=== PATIENT | male | born 1950 ===

== ENCOUNTER 2016-06-12 06:52 | Inpatient (IN) | payer OTHER, BC ==
--- NOTE | 2016-06-11 13:56 | GHP ---
[f rep st] PREOP HISTORY AND PHYSICAL DATE OF ADMISSION: He will be an a.m. admission for surgery on Monday, June 122016. PROBLEM: Left knee degenerative arthritis. HISTORY OF PRESENT ILLNESS: The patient is a 65-year-old man admitted for a left total knee arthroplasty. He lives in [place], [place]. He states that he has been bowlegged his whole life. 3 years ago, he underwent right knee arthroscopic surgery, but it did not help. 1-1/2 years ago, he underwent left knee arthroscopic surgery and that did not help either. He has tried physical therapy. He has day pain and night pain. He has to use a pillow between his knees at night. Walking is painful. The more active he is, the more pain he has. PAST MEDICAL HISTORY: He is treated for hypertension. He underwent a heart catheterization in December of 2015 and was told that his coronary arteries were clear. No history of DVT or hepatitis. He has sleep apnea and has a CPAP machine. CURRENT MEDICATIONS: Lisinopril 20 mg per day. Metoprolol 50 mg per day. He takes a baby aspirin every day, but he stopped it in preparation for his surgery. DRUG ALLERGIES: Penicillin caused swelling when he was a child. METAL ALLERGY: None. LATEX ALLERGY: None. SOCIAL HISTORY: The patient is . He does not smoke cigarettes and rarely drinks alcohol. He works part-time doing small tool repair. FAMILY HISTORY: Positive for arthritis. PHYSICAL EXAMINATION: GENERAL: Height 6 feet 3 inches. Weight 240 pounds. EYES: Conjunctivae and sclerae are clear. Pupils are round and reactive. MOUTH: Good oral hygiene. No loose teeth. CHEST: Clear. HEART: Regular rhythm. No murmurs. EXTREMITIES: Pertinent findings limited to his left knee. He has significant varus alignment. No effusion. No patellofemoral crepitation. He has a 3-degree flexion contracture and further flexion to 120 degrees. His ligaments are stable except for mild pseudolaxity of his medial collateral ligament. IMAGING: His films show degenerative arthritis in the medial compartment of the left knee with varus alignment. IMPRESSION ON ADMISSION: 1. Left knee medial compartment degenerative arthritis with varus deformity. 2. Right knee early degenerative arthritis, which is mild, asymptomatic. 3. Treatment for hypertension. 4. Sleep apnea. PLAN: He will undergo a left total knee arthroplasty. The surgery has been described to him including the risks, complications, expectations, and recovery time. I have stressed the importance of postoperative physical therapy. I have advised him that a small percentage of people do not get a satisfactory result. He is aware there is a small risk of future revision surgery. All his questions have been answered, and he consents to surgery. Copy requested to: SHIRLEY Elder /[id number]/MODL MTDD
[2016-06-12] MEDS ORDERED: LR 1,000 ML IV ONE (07:58)
[2016-06-12] MEDS ORDERED: POVIDONE-IODINE 20 ML in SODIUM CL IRRIG SOLUTION 500 ML IRR ONE (08:00)
[2016-06-12] MEDS ORDERED: DEXAMETHASONE 4 MG/ML VIAL IVP ONE (08:00)
[2016-06-12] MEDS ORDERED: CHLORHEXIDINE GLUC HIBICLENS 118 ML BTL TP ONE (08:00)
[2016-06-12] MEDS ORDERED: ROPI/epiNEPH/KETOROLAC JOINT COCKTAIL IU ONE (08:00)
[2016-06-12] MEDS ORDERED: CEFAZOLIN 2 GM/DEXTR 100 ML IV ONE (08:00)
[2016-06-12] MEDS ORDERED: FAMOTIDINE 20 MG TAB PO ONE (08:00)
[2016-06-12] MEDS ORDERED: ACETAMINOPHEN 325 MG TAB PO ONE (08:00)
[2016-06-12] MEDS ORDERED: TRANEXAMIC ACID 1,100 MG in NS 100 ML IV ONE (08:00)
[2016-06-12] MEDS ORDERED: PROPOFOL/EMULSION 500 MG/50 ML BOTTLE IV ONE ×2 (08:32→10:15)
[2016-06-12] MEDS ORDERED: fentaNYL 100 MCG/2 ML INJ ONE (08:32)
[2016-06-12] MEDS ORDERED: VANCOMYCIN 1 GM VIAL IV ONE (08:36)
[2016-06-12] MEDS ORDERED: ceFAZolin 1 GM/5 ML SYR ONE (08:37)
[2016-06-12] MEDS ORDERED: ONDANSETRON 4 MG/2 ML VIAL ONE (11:21)
--- NOTE | 2016-06-12 11:21 | POSTOPPROG ---
Post Op Note Date of Operation: 06/12/16 Surgeon: Alexander Frederick [employer] Demonstrator: Alek Anesthesiologist: Sandy Anesthesia: IV Sedation, Spinal Post-op Diagnosis: left knee arthritis Procedure: L TKA Inf/Abcess present in the surg proc area at time of surgery?: No EBL: 50-100
[2016-06-12] MEDS ORDERED: POLYETHYLENE GLYCOL 3350 17 GM PKT PO PRN (11:36)
[2016-06-12] MEDS ORDERED: ONDANSETRON DISINTEGRATING 4 MG TAB PO PRN (11:36)
[2016-06-12] MEDS ORDERED: DIPHENOXYLATE/ATROPINE LOMOTIL 1 TAB PO PRN (11:36)
[2016-06-12] MEDS ORDERED: TEMAZEPAM 15 MG CAP PO PRN (11:36)
[2016-06-12] MEDS ORDERED: NS 500 ML IV PRN (11:36)
[2016-06-12] MEDS ORDERED: METOCLOPRAMIDE 10 MG/2 ML VIAL IVP PRN (11:36)
[2016-06-12] MEDS ORDERED: BISACODYL 10 MG SUPP PR PRN (11:36)
[2016-06-12] MEDS ORDERED: CYCLOBENZAPRINE 10 MG TAB PO PRN (11:36)
[2016-06-12] MEDS ORDERED: PROMETHAZINE HCL 25 MG SUPPR PR PRN (11:36)
[2016-06-12] MEDS ORDERED: PHARMACY PAIN CONSULT 1 EA MISC PRN (11:36)
[2016-06-12] MEDS ORDERED: KETOROLAC 30 MG/1 ML SDV IVP PRN (11:36)
[2016-06-12] MEDS ORDERED: diphenhydrAMINE 25 MG CAP PO PRN (11:36)
[2016-06-12] MEDS ORDERED: traMADol 50 MG TAB PO PRN (11:36)
[2016-06-12] MEDS ORDERED: MAGNESIUM HYDROXIDE 30 ML UDCUP PO PRN (11:36)
[2016-06-12] MEDS ORDERED: ONDANSETRON 4 MG/2 ML VIAL IVP PRN (11:36)
[2016-06-12] MEDS ORDERED: LACTULOSE 20 GM/30 ML UDCUP PO PRN (11:36)
[2016-06-12] MEDS ORDERED: LR 1,000 ML IV SCH (12:00)
--- NOTE | 2016-06-12 12:08 | GOP ---
[f rep st] OPERATIVE REPORT DATE OF OPERATION: 06/12/2016 SURGEON: Alexander Frederick MD HAT LINING PASTER: 1. Ayaan Muñiz P.A.-C. 2. Jay Jay Coombs C.F.A. ANESTHESIA: Combination of Marcaine, spinal and IV sedation and adductor canal block. ANESTHESIOLOGIST: Dr. Lucas Delgado. PREOPERATIVE DIAGNOSIS: Left knee degenerative arthritis with varus deformity. POSTOPERATIVE DIAGNOSIS: Left knee degenerative arthritis with varus deformity. PROCEDURE PERFORMED: Left total knee arthroplasty, Lujan and Nephew Journey 2, cemented, posterior stabilized. FINDINGS: DESCRIPTION OF PROCEDURE: The patient was given 2 g of IV Ancef preoperatively within 60 minutes of surgery. He also received IV tranexamic acid at a dose of 10 mg/kg. He was placed on the operatin g room table and given spinal anesthesia with Marcaine by Dr. Delgado. He was then placed supine and given IV sedation. A Aparicio catheter was not used. He wore a JES stocking and SCD on the nonoperati ve leg. His left lower extremity was prepped with ChloraPrep from the upper thigh tourniquet to the tips of the toes. It was draped free using sterile sheets, stockinette, and Ioban plastic adhesive drape. The lower leg was wrapped with compressive Coban. The leg was exsanguinated with elevation and a 6-inch compressive wrap, and the pneumatic tourniquet was inflated to 250 mmHg. The [employer] time-out was performed to verify the correct patient identity and the correct surg ical side. The Isabella time-out was also performed. The [employer] leg holding device was sterilely at tached to the operating room table and used throughout the procedure to help position the knee. A straight midline incision was made centered on the patella. Subcutaneous tissues were sharply div ided and hemostasis was obtained using electrocautery. A medial subcutaneous flap was developed and capsule and synovium were opened in a medial parapatellar fashion. Extensive degenerative changes were present in the medial compartment. His medial capsule and periosteum were elevated off the rim and medial tibial plateau all the way around to the posteromedial corner. Because of a significant preoperative varus alignment, I made a significant release of the medial collateral ligament off th e medial tibial plateau flare. In order to improve exposure, the patella was prepared first. The original thickness of the patella was measured. Peripheral osteophytes were removed. I cut a flat surface on the back of the arti tracey. It was sized for a 38 mm resurfacing component. I removed enough bone from the patella such etta t the remaining bone plus the thickness of the patellar component recreated the original thickness o f the patella. The composite thickness was 25 mm. The intramedullary alignment guide system was us ed to set up the distal femoral cut. The distal femur was cut in 5 degrees of valgus. I made a +2 mm cut on the distal femur. The sizing jig was used to determine proper femoral sizing. He was a t rue size 7 without a shift. The 5 in 1 cutting block was applied, and the anterior and posterior co ndylar cuts and chamfer cuts were made. The final jig was used to remove the central portion of the distal femur to accommodate the posterior stabilized femoral component. I was careful to determine proper rotation by referencing off Whitesides line. Each cut was checked for accuracy before and a fter it was made. The femur was a size 7 posterior stabilized component. Next, the tibia was prepared. The proximal tibial cut was made using the extramedullary alignment g uide system. The cut was made in a few degrees of posterior slope. I was careful to achieve proper varus and valgus alignment and proper rotation. The posterior compartment was cleared of meniscal remnants. Osteophytes were removed from the back of the femoral condyles. I checked the flexion ex tension gaps. His medial collateral ligament. It was tight particularly in flexion. I used an 11 blade and perforated the medial collateral ligament to lengthen it a small amount. At that point, t gunjan flexion and extension gaps were equal and balanced and were rectangular. The tibia was sized for a size 6 component. With the trial components in place, I selected a 10 mm polyethylene posterior stabilized tibial insert. The knee came to full extension and flexed to 130 degrees. There was no overstuffing in flexion. His collateral ligaments were stable and balanced in 90 degrees of flexion to full extension. The trial patellar button was applied and patellar tracking was checked. Track ing was excellent, without any digital pressure. 40 mL of a joint anesthetic cocktail was injected into the posterior capsule, the periarticular stru ctures, the quadriceps muscle and tendon areas, and the subcutaneous tissues along the skin edges. A second dose of IV tranexamic acid was given at a dose of 10 mg/kg. The surfaces were prepared for cementing. They were carefully cleaned with the pulsating lavage irr igation and thoroughly dried. The CarboJet device was used to blow dry the cancellous surfaces. A double batch of methylmethacrylate cement with tobramycin was mixed with 2 g of powdered vancomycin added. While it was still in a semi liquid state, all [address] components were cemented in place. Excess cement was removed before it hardened. The 10 mm trial tibial insert was retried and was the proper thickness. The actual component was inserted and locked into place. The knee was thoroughly irrigated 1 final time with a dilute Betadine solution. The tourniquet was deflated and the total tourniquet time was 65 minutes. The vastus medialis portion of the extensor mechanism was repaired with several interrupted figure-o f-eight #2 FiberWire sutures. The capsule and synovium were closed first with multiple interrupted [id number] 0 PDS sutures, followed by a running #2 barbed Ethicon Stratafix PDO suture. The palomares bcutaneous tissues were closed with a running 0 barbed Ethicon Stratafix Monoderm suture. The skin was closed with a running 3-0 barbed Ethicon Stratafix Monoderm subcuticular suture. The skin was s ealed with half-inch Steri-Strips. The wound was covered with Xeroform gauze and flat 4x4s, and the knee was wrapped with a Kerlix and 6-inch compressive wrap. A long-leg JES stocking and SCD were a pplied followed by the cooling device. The patient wore a stocking and SCD on the opposite leg duri ng the procedure. I used a size 7 cemented Lujan and Nephew Oxinium posterior stabilized femoral component, size 6 smita ented tibial base plate, a 10 mm posterior stabilized tibial insert, and a 38 mm cemented round all- polyethylene resurfacing patellar component. The estimated blood loss following placement of the tourniquet was about 100 cc. The sponge and nee dle count were correct on 2 occasions. The patient was awakened from anesthesia, transferred to his [facility] and taken to the PACU in satisfactory condition. There were no recognized intraope rative complications. In the PACU, for additional postoperative pain control, Dr. Delgado administered an adductor canal blo ck to the left leg. Haris Muñiz and Jay Jay Coombs acted as surgical assistants. Their assistance was a medical adarsh bautista. Copy requested to: Mahin Devi MD [place] /[id number]/MODL
[2016-06-12 12:58] VITALS: RESP 16
[2016-06-12] MEDS: ACETAMINOPHEN 325 MG TAB PO SCH ×3 (13:16→23:01)
[2016-06-12] MEDS: TRANEXAMIC ACID 650 MG TAB PO SCH ×3 (15:08→21:15)
[2016-06-12] MEDS: ceFAZolin 2 GM/DEXTROSE 100 ML IV SCH (17:51)
[2016-06-12] MEDS: SENNOSIDES/DOCUSATE SODIUM TAB PO SCH (21:14)
[2016-06-12] MEDS: FAMOTIDINE 20 MG TAB PO SCH (21:15)
[2016-06-12] MEDS: ASPIRIN 325 MG TAB PO SCH (21:15)
[2016-06-12] MEDS: METOPROLOL SUCCINATE XR 50 MG TAB PO SCH (21:25)
[2016-06-13] MEDS: ceFAZolin 2 GM/DEXTROSE 100 ML IV SCH (02:57)
[2016-06-13] MEDS: oxyCODONE IR 5 MG TAB PO PRN ×4 (03:13→13:43)
[2016-06-13 05:24] LABS: HEMATOCRIT 39.7 % (40.0-51.0); HEMOGLOBIN 12.9 g/dL (13.7-17.5)
[2016-06-13] MEDS: ACETAMINOPHEN 325 MG TAB PO SCH ×2 (05:48→12:02)
[2016-06-13] MEDS ORDERED: FERROUS SULFATE 140 MG TAB.ER PO SCH (09:00)
[2016-06-13] MEDS ORDERED: LISINOPRIL 20 MG TAB PO SCH (09:00)
[2016-06-13] MEDS ORDERED: Herbals/Supplements -Info Only PO SCH (09:00)
[2016-06-13] MEDS: ASPIRIN 325 MG TAB PO SCH (09:18)
[2016-06-13] MEDS: FAMOTIDINE 20 MG TAB PO SCH (09:19)
[2016-06-13] MEDS: SENNOSIDES/DOCUSATE SODIUM TAB PO SCH (09:19)
[2016-06-13] MEDS: TRANEXAMIC ACID 650 MG TAB PO SCH (09:19)
[2016-06-13] MEDS: METOPROLOL SUCCINATE XR 50 MG TAB PO SCH (09:31)
--- NOTE | 2016-06-13 12:07 | SOAPPROG ---
SOAP Progress Note Assessment/Plan: Assessment: Afebrile. Mild pain. Up and walking and good progress with PT. H/H is good. Dsg is dry. He has full extension. Films look good. Plan:DC later today. Standing long film before discharge. [place] dsg before discharge. He has polycythemia. He doesn't neet iron at home. 06/13/16 12:05 Objective: Vital Signs Temp Pulse Resp BP Pulse Ox 36.9 C 67 16 113/59 L 93 06/13/16 07:52 06/13/16 09:31 06/13/16 07:52 06/13/16 09:31 06/13/16 07:52 Laboratory Results 06/13/16 05:04 06/12/16 06/13/16 06/14/16 05:59 05:59 05:59 Intake Total 2350 550 Output Total 700 400 Balance 1650 150 ICD10 Worksheet Patient Problems: Problems Problem Status Onset Osteoarthritis of left knee Acute
[2016-06-13 12:12] VITALS: BP 142/68; PULSE 50; TEMP 98.3; O2SAT 95
--- NOTE | 2016-06-13 12:52 | GDS ---
[f rep st] DISCHARGE SUMMARY ADMISSION DIAGNOSIS: Left knee degenerative arthritis with varus deformity. DISCHARGE DIAGNOSIS: Left knee degenerative arthritis with varus deformity. OPERATION PERFORMED: 06/12/2016, a left total knee arthroplasty. POSTOPERATIVE COMPLICATIONS: None. CONDITION ON DISCHARGE: Improved. DESCRIPTION OF HOSPITAL COURSE: The patient was admitted to the hospital on morning of surgery. Hi s admission CBC, electrolytes, BUN, and creatinine were all normal. The same day, under a combinati on of Marcaine, spinal, and IV sedation, he underwent a left total knee arthroplasty. Postoperative ly, he was treated with multimodal DVT prophylaxis including aspirin. On the first postoperative da y, his hemoglobin and hematocrit were 12.9 and 39.7. He was seen by Physical Therapy and made good progress with ambulation, knee range of motion, and stairs. By the time of discharge, he was afebri le and he was independent walking. DISPOSITION: The patient is discharged to [facility]. I am going to see him in the office tomorrow. He will use JES stockings for 1 week. He may progress to full weightbeari ng as tolerated on the left leg. Continue aspirin 325 mg daily for 21 days. He may progress to ful l weightbearing as tolerated. His home is in [place], [place], and he will return there tomok yudi after his office visit. He will go to outpatient physical therapy in his home town starting nex t Saturday. I will see him back in the office a month after that. Copy requested to: Dr. Mahin Devi [place], [place] /[id number]/MODL
== END 2016-06-13 15:43 | disposition home or self-care (01) | DRG 470 ==
LOC: F3N 06:52
PROVIDERS: ADMIT Orthopaedic Surgery; ATTEND Orthopaedic Surgery
PROC: 0SRD0J9 Replacement of Left Knee Joint with Synthetic Substitute, Cemented, Open Approach (ICD-10-PCS; principal; 2016-06-12 09:30)
DX: M17.12 Unilateral primary osteoarthritis, left knee (principal); I10 Essential (primary) hypertension
CPT/HCPCS: 97116-GP; 97161-GP; 97165-GO; 97530-GP; C1713; G8978-GP-CI; G8979-GP-CI; G8987-GO-CI; G8988-GO-CI; G8989-GO-CI; J0171; J0690; J1100; J1885; J2405; J2704; J2795; J3010; J3370